=== PATIENT | female | born 1965 | race Caucasian/White ===

== ENCOUNTER 2016-08-25 22:32 | Emergency (ER) | payer SELFPAY ==
--- NOTE | 2016-08-25 23:30 | ERNOTE ---
ENT HPI Presenting Symptoms: other - cough, body aches, sore throat Time Seen by Provider: 08/25/16 23:20 Source: patient Exam Limitations: no limitations - Immun/Allergies/Home Medications Immunizations: IMMUNIZATION HX Immunizations Up to Date Yes History of Influenza Vaccine No Allergies/Adverse Reactions: Allergies Allergy/AdvReac Type Severity Reaction Status Date / Time azithromycin [From Zithromax] Allergy Severe Anaphylaxis Verified 08/25/16 22:46 ciprofloxacin [From Cipro] Allergy Severe Anaphylaxis Verified 08/25/16 22:46 ciprofloxacin HCl Allergy Severe Anaphylaxis Verified 08/25/16 22:46 [From Cipro] doxycycline Allergy Severe Anaphylaxis Verified 08/25/16 22:46 erythromycin base Allergy Severe Verified 08/25/16 22:46 [Erythromycin Base] meloxicam Allergy Severe Hives Verified 08/25/16 22:46 mirtazapine [From Remeron] Allergy Severe Verified 08/25/16 22:46 nabumetone [From Relafen] Allergy Severe Verified 08/25/16 22:46 naproxen sodium [From Aleve] Allergy Severe Anaphylaxis Verified 08/25/16 22:46 Penicillins Allergy Severe Anaphylaxis Verified 08/25/16 22:46 sulfamethoxazole Allergy Severe Anaphylaxis Verified 08/25/16 22:46 [From Bactrim] tramadol Allergy Severe Verified 08/25/16 22:46 trimethoprim [From Bactrim] Allergy Severe Anaphylaxis Verified 08/25/16 22:46 venom-honey bee Allergy Intermediate Swelling Verified 08/25/16 22:46 of Throat cefaclor [From Ceclor] Allergy Mild Hives Verified 08/25/16 22:46 cephalexin monohydrate Allergy Mild Hives Verified 08/25/16 22:46 [From Keflex] Cephalosporins Allergy Mild Hives Verified 08/25/16 22:46 ibuprofen Allergy Hives Verified 08/25/16 22:46 paprika Allergy Intermediate Uncoded 08/25/16 22:46 tomatoes Allergy Mild Uncoded 08/25/16 22:46 turkey AdvReac Mild Uncoded 08/25/16 22:46 Home Medications: HOME MEDICATIONS Cyanocobalamin (Vitamin B-12) [Vitamin B-12] 2,000 mcg PO DAILY 03/11/14 [Last Taken Unknown] Ergocalciferol (Vitamin D2) [Vitamin D2] 50,000 unit PO Q3D 03/11/14 [Last Taken Unknown] Estrogen,Con/M-Progest Acet [Prempro 0.3 mg-1.5 mg Tablet] 1 each PO 03/31/16 [ Last Taken Unknown] Ibuprofen 800 mg PO TID 08/25/16 [Last Taken Unknown] - History of Present Illness Narrative: Pt has had cough, and malaise for 2 days. unknown tempurature. Severity: Present: moderate ENT Location: Present: throat Review of Systems - Review of Systems Constitutional: Present: See HPI, weakness, fatigue, decreased activity level EYE: Present: no symptoms reported ENT: Present: See HPI Respiratory: Present: See HPI, cough Cardiology: Absent: chest pain, palpitations Gastrointestinal/Abdominal: Absent: nausea Genitourinary: Present: no symptoms reported Musculoskeletal: Present: muscle pain, muscle stiffness Skin: Absent: rash Neurological: Present: no symptoms reported, other Hematologic/Lymphatic: Present: no symptoms reported Psych: Present: no symptoms reported - Patient's Past Medical History Patient History - Medical: Obesity Patient History - Cardiac/Respiratory: No pertinent hx Patient History - Cancer: No Hx of Cancer Patient History - Surgical Procedures: T & A - Social History Living Situations: home Smoking Status: Never smoker Alcohol Use: none Drug Use: none - Immunizations Immunizations Up to Date: Yes History of Influenza Vaccine: No Physical Exam - Physical Exam General Appearance: Present: wd/wn, alert, mild distress Eye Exam: Normal inspection: bilateral Ears, Nose, Throat: Present: nasal congestion, pharyngeal erythema - lateral streaks Neck: Present: normal inspection, nontender, supple Respiratory: Present: no respiratory distress, normal breath sounds, no accessory muscle use, chest nontender, lungs clear Cardiovascular/Chest: Present: regular rate, rhythm, no murmur, normal peripheral pulses Extremity Exam: Present: normal inspection, normal range of motion, no edema Neurological Exam: Present: alert, oriented Skin Exam: Present: normal color, warm/dry Lymphatic Exam: Present: no adenopathy ED Progress - Results and Orders Patient's Lab Results:: I have reviewed the patient's lab results. Results and Orders: Laboratory Tests 08/25/16 08/25/16 23:34 23:34 Influenza Type A Ag Negative Influenza Type B Ag Negative Group A Strep Rapid Negative - Vital Signs Patient's Vital Signs:: I have reviewed the patient's vital signs. Vital Signs: Vital Signs 08/25/16 08/25/16 22:33 22:43 Temperature 35.5 C L 36.1 C L Pulse Rate 69 Respiratory 18 Rate Blood Pressure 138/78 131/93 O2 Sat by Pulse 98 Oximetry - Progress/Reassessment Chief Complaint: Sore Throat Departure Clinical Impression: Upper respiratory infection Qualifiers: URI type: unspecified viral URI Qualified Code(s): J06.9 - Acute upper respiratory infection, unspecified - Departure Disposition: Home self-care Condition: Good Instructions: Upper Respiratory Infection, Adult, [id number] Referrals: Maurice Pond MD [Primary Care Provider] -
--- OUTSIDE RECORDS SUMMARY | 2016-08-25 23:37 | XMS REPORT | Continuity of Care Document ---
:1965 Author Organization [facility] ([facility]) Address [address] [place] [address] Phone [phone] Care Team Providers Name Role Phone Maurice Pond Primary Care Provider [phone] Source Comments This disclosure is being made pursuant to the Care Everywhere program, applicable federal and state laws, and may not contain all informaitonavailable regarding this patient.[facility] ([facility]) Active Allergies and Adverse Reactions Allergen Noted Date Severity Reactions Comments Azithromycin 11/24/2010 Urticaria (Hives) Carisoprodol Urticaria (Hives) Cefaclor Urticaria (Hives) Cephalosporins 03/15/2012 Rash Ciprofloxacin 11/24/2010 Bronchospasm,Rash Breathing difficulties Clindamycin 12/16/2013 Angioedema Doxycycline Hyclate 03/15/2012 Rash Erythromycin 03/15/2012 Rash Ibuprofen 03/15/2012 Urticaria (Hives) Medroxyprogesterone 10/20/2008 Pruritus,Rash Meloxicam 03/15/2012 Respiratory Distress,Urticaria (Hives) Mirtazapine 03/15/2012 Rash Naproxen 11/24/2010 OTHER hematuria Oxycodone-Acetaminophen 08/09/2015 Pruritus,Rash Penicillins 08/04/2012 OTHER Face swelled up. No breathing issues. Promethazine Angioedema SKIN BREAK-DOWN,-IV FORM Sulfamethoxazole Nausea & Vomiting,Rash Tramadol 03/15/2012 Rash Trimethoprim Nausea & Vomiting Current Medications Prescription Sig. Disp. Refills Start Date End Date Status cyanocobalamin (VITAMIN Take 2,000 mcg by Active B-12) 1,000 mcg tablet mouth daily. ergocalciferol (VITAMIN Take 50,000 Units Active D2) 50,000 unit capsule by mouth 2 times weekly. ibuprofen 200 mg tablet Take 600-800 mg by Active mouth every 8 hours as needed. CALCIUM CARBONATE/VITAMIN Active D3 (CALCIUM + D PO) estrogens, Take 1 tablet by Active conjugated-medroxyPROGESTE mouth daily. Jonathan (PREMPRO) 0.3-1.5 mg per tablet zinc sulfate 44 mg/mL Take 220 mg by Active solution mouth daily. Active Problems Problem Noted Date Acquired bilateral hammer toes 08/11/2015 Vitamin D deficiency 08/11/2015 Dental abscess 10/24/2011 Other disorder of menstruation and other abnormal bleeding from female 2008 genital tract Unspecified symptom associated with female genital organs 06/05/2008 Rheumatoid arthritis(714.0) 07/31/2005 Lumbago 04/06/2000 Social History Tobacco Use Types Packs/Day Years Used Date Never Smoker Smokeless Tobacco: Never Used Alcohol Use Drinks/Week oz/Week Comments No rare Last Filed Vital Signs Vital Sign Reading Time Taken Blood Pressure 128/71 02/12/2016 9:24 AM CDT Pulse 64 02/12/2016 9:24 AM CDT Temperature 35.1 C (95.2 F) 02/12/2016 9:24 AM CDT Respiratory Rate 11 12/09/2013 1:32 PM CDT Height 1.626 m (5' 4.02") 02/12/2016 9:24 AM CDT Weight 109.3 kg (240 lb 15.4 oz) 02/12/2016 9:24 AM CDT Body Mass Index 41.34 02/12/2016 9:24 AM CDT Oxygen Saturation 100% 12/20/2013 10:15 AM CDT Plan of Care Health Maintenance Due Date Last Done Comments Hepatitis B Vaccine (1 of 3 - Primary Series) 1965 Tdap Vaccine 07/02/1978 Lipid Disorder Screening 07/02/1985 MMR Vaccine 07/02/1985 Td Vaccine 07/02/1985 Cervical Cancer Screening 02/25/2005 02/25/2002 Mammogram 2007 02/25/2002 Influenza Vaccine: Seasonal (#1) 11/26/2015 Results from Last 3 Months Not on file
[2016-08-26 00:25] VITALS: BP 122/74
== END 2016-08-26 00:24 | disposition home or self-care (01) ==
LOC: ER 22:32
DX: J06.9 Acute upper respiratory infection, unspecified (principal)

== ENCOUNTER 2016-10-06 22:37 | Emergency (ER) | payer SELFPAY ==
[2016-10-06 22:58] LABS: Hematocrit 37.8 % (37.0-47.0); Hemoglobin 12.2 gm/dL (12.5-16.0); Mean Cell Volume 87.7 fl (78-100); Mean Corpuscular Hemoglobin 28.3 pg (27-31); Mean Corpuscular Hgb Conc 32.3 g/dl (32-36); Mean Platelet Volume 10.3 fl (6.0-9.5); Neutrophil # 4.5 K/mm3 (1.3-6.0); Neutrophil % 64.1 % (42-75.0); Platelet Count 282 K/mm3 (150-450); Red Blood Count 4.31 M/mm3 (4.2-5.4); Red Cell Distribution Width 13.1 % (11.5-14.0)
[2016-10-06 23:09] LABS: Prothrombin Time (Patient) 10.5 Seconds (9.4-11.4)
[2016-10-06] MEDS ORDERED: LIDOCAINE HCL 20 ML UDC PO ONE (23:09)
[2016-10-06] MEDS ORDERED: MAG HYDROX/ALUMINUM HYD/SIMETH 30 ML UDC PO ONE (23:09)
[2016-10-06 23:10] LABS: INR 1.01 INR (0.90-1.10); Partial Thrombolplastin Time 25.7 Seconds (24-32)
[2016-10-06] MEDS ORDERED: FAMOTIDINE 20 MG TABLET PO ONE (23:10)
[2016-10-06] MEDS ORDERED: HYDROmorphone HCL 1 MG/ML DISP.SYRIN IV ONE (23:10)
[2016-10-06] MEDS ORDERED: HYDROmorphone HCL 1 MG/ML DISP.SYRIN ONE (23:14)
[2016-10-06] MEDS ORDERED: FAMOTIDINE 20 MG TABLET ONE (23:14)
[2016-10-06 23:16] LABS: ALT 22 U/L (19-67); AST 19 U/L (0-48); Albumin * 3.3 gm/dl (3.4-5.0); Alkaline Phosphatase * 188 U/L (50-170); Anion Gap 12.4 mmol/L (6.8-13.8); Bilirubin, Total 0.2 mg/dL (0.0-1.1); Blood Urea Nitrogen 13 mg/dL (3-23); Ca. Corrected For Albumin 8.9 mg/dL (8.4-10.2); Calcium * 8.7 mg/dL (7.9-10.9); Carbon Dioxide 28.2 mmol/L (24-32.6); Chloride 104 mmol/L (97-106); Glucose * 108 mg/dL (70-110); Potassium 3.6 mmol/L (3.4-4.6); Sodium 141 mmol/L (132-142); Total Protein 7.3 gm/dL (6.2-8.2); Troponin I Less than 0.017 ng/ml (0.00-0.10)
--- NOTE | 2016-10-06 23:17 | ERNOTE ---
Chest Pain/Cardiac HPI Date of Service: 10/06/16 Chief Complaint: Chest Pain Time Seen by Provider: 10/06/16 23:08 Source: patient Exam Limitations: no limitations Immunizations: IMMUNIZATION HX Immunizations Up to Date No History of Influenza Vaccine No Hx Pneumococcal Vaccination No Allergies/Adverse Reactions: Allergies azithromycin [From Zithromax] Allergy (Severe, Verified 10/06/16 22:54) Anaphylaxis ciprofloxacin [From Cipro] Allergy (Severe, Verified 10/06/16 22:54) Anaphylaxis ciprofloxacin HCl [From Cipro] Allergy (Severe, Verified 10/06/16 22:54) Anaphylaxis doxycycline Allergy (Severe, Verified 10/06/16 22:54) Anaphylaxis erythromycin base [Erythromycin Base] Allergy (Severe, Verified 10/06/16 22:54) meloxicam Allergy (Severe, Verified 10/06/16 22:54) Hives mirtazapine [From Remeron] Allergy (Severe, Verified 10/06/16 22:54) nabumetone [From Relafen] Allergy (Severe, Verified 10/06/16 22:54) naproxen sodium [From Aleve] Allergy (Severe, Verified 10/06/16 22:54) Anaphylaxis Penicillins Allergy (Severe, Verified 10/06/16 22:54) Anaphylaxis sulfamethoxazole [From Bactrim] Allergy (Severe, Verified 10/06/16 22:54) Anaphylaxis tramadol Allergy (Severe, Verified 10/06/16 22:54) trimethoprim [From Bactrim] Allergy (Severe, Verified 10/06/16 22:54) Anaphylaxis venom-honey bee Allergy (Intermediate, Verified 10/06/16 22:54) Swelling of Throat cefaclor [From Ceclor] Allergy (Mild, Verified 10/06/16 22:54) Hives cephalexin monohydrate [From Keflex] Allergy (Mild, Verified 10/06/16 22:54) Hives Cephalosporins Allergy (Mild, Verified 10/06/16 22:54) Hives honey Allergy (Verified 10/06/16 22:54) Swelling of Face ibuprofen Allergy (Verified 10/06/16 22:54) Hives paprika Allergy (Intermediate, Uncoded 10/06/16 22:54) tongue, lips and face swelling tomatoes Allergy (Mild, Uncoded 10/06/16 22:54) mouth sores turkey Adverse Reaction (Mild, Uncoded 06/12/17 22:54) vomiting Home Medications: HOME MEDICATIONS Cyanocobalamin (Vitamin B-12) [Vitamin B-12] 2,000 mcg PO DAILY 03/11/14 [Last Taken Unknown] Ergocalciferol (Vitamin D2) [Vitamin D2] 5,000 unit PO DAILY 03/11/14 [Last Taken Unknown] Estrogen,Con/M-Progest Acet [Prempro 0.3 mg-1.5 mg Tablet] 1 each PO 2XW [Last Taken Unknown] Famotidine [Pepcid] 20 mg PO DAILY #30 tablet 10/06/16 [Last Taken Unknown] Potassium 99 mg PO DAILY 10/06/16 [Last Taken Unknown] Sucralfate [Carafate] 1 gm PO QID #120 tab 10/06/16 [Last Taken Unknown] Narrative: 51 yo JUANITO comes to ED with 3 weeks for intermittent chest pain. Last two days it has been more consistent and more intense. She describes lower parasternal pain which radiates laterally to scapular area and up to lower cervicoclavicular region. It has been associated with intense pyrosis which she has not had in the past. She denies any fever, chills, diaphoresis, SOB. Pain is now a 2/10 but was 10/10 earlier. She has been under alot of stress for the past weeks. Review of Systems - Review of Systems Constitutional: Present: fatigue ENT: Present: no symptoms reported Respiratory: Present: no symptoms reported Cardiology: Present: no symptoms reported Musculoskeletal: Present: no symptoms reported Neurological: Present: no symptoms reported - Patient's Past Medical History Patient History - Medical: Obesity Patient History - Cardiac/Respiratory: Arrhythmias Patient History - Cancer: No Hx of Cancer Patient History - Surgical Procedures: Gastric Bypass, T & A Patient History - Other: None LMP (females 10-50): Menopausal - Social History Living Situations: home Psych History: No pertinent hx Smoking Status: Never smoker Alcohol Use: rarely Drug Use: none - Immunizations Immunizations Up to Date: No Hx Pneumococcal Vaccination: No History of Influenza Vaccine: No Physical Exam - Physical Exam General Appearance: Present: wd/wn, alert, no apparent distress, obese Eye Exam: Normal inspection: bilateral Ears, Nose, Throat: Present: normal ENT inspection Neck: Present: normal inspection Respiratory: Present: no respiratory distress Cardiovascular/Chest: Present: regular rate, rhythm, gallop/S4, systolic murmur Gastrointestinal/Abdominal: Present: nontender, soft Extremity Exam: Present: normal inspection, non-tender, no edema Skin Exam: Present: normal color, warm/dry ED Progress - Results and Orders Patient's Lab Results:: I have reviewed the patient's lab results. - Vital Signs Patient's Vital Signs:: I have reviewed the patient's vital signs. Vital Signs: Vital Signs 10/06/16 10/06/16 22:42 22:51 Temperature 36.3 C L Pulse Rate 65 63 Respiratory 17 Rate Blood Pressure 147/80 O2 Sat by Pulse 98 Oximetry - EKG EKG: NSR, no ST T wave changes, other - No acute change from 12/16/2013 - X-Ray X-Ray #1 X-Ray: chest - No acute changes - Progress/Reassessment Chief Complaint: Chest Pain Progress Note-Subjective: 10/06/16 23:43 Feels much improved. No pain. Plan - Plan Plan: Elevation HOB 10-12 inches Do not eat less than 3 hours before reclining. Take carafate and pepcid as directed Follow up with PCP Departure - Departure Clinical Impression: Atypical chest pain, Esophageal spasm, GERD (gastroesophageal reflux disease) Disposition: Home self-care Condition: Fair Instructions: Indigestion, [id number] Additional Instructions: Do not eat less than 3 hours before reclining Elevate HOB 10-12 inches Take pepcid and carafate as directed Follow up with PCP Referrals: Maurice Pond MD [Primary Care Provider] - Prescriptions: Famotidine [Pepcid] 20 mg PO DAILY #30 tablet Sucralfate [Carafate] 1 gm PO QID #120 tab
[2016-10-06] MEDS ORDERED: SUCRALFATE 1 G/10 ML UDC PO ONE (23:18)
--- OUTSIDE RECORDS SUMMARY | 2016-10-06 23:21 | XMS REPORT | Continuity of Care Document ---
:1965 Author Organization [facility] ([facility]) Address [address] [place] [address] Phone [phone] Care Team Providers Name Role Phone Maurice Pond Primary Care Provider [phone] Source Comments This disclosure is being made pursuant to the Care Everywhere program, applicable federal and state laws, and may not contain all informaitonavailable regarding this patient.[facility] ([facility]) Active Allergies and Adverse Reactions Allergen Noted [...]
[2016-10-06 23:36] VITALS: BP 137/78
== END 2016-10-06 23:58 | disposition home or self-care (01) ==
LOC: ER 22:37
DX: R07.89 Other chest pain (principal); K22.4 Dyskinesia of esophagus; K21.9 Gastro-esophageal reflux disease without esophagitis

== ENCOUNTER 2016-10-26 21:07 | Emergency (ER) | payer SELFPAY ==
[2016-10-26 21:26] VITALS: BP 117/83
[2016-10-26] MEDS ORDERED: TETANUS AND DIPHTHERIA TOXOID 0.5 ML SYRG IM ONE (21:48)
[2016-10-26] MEDS ORDERED: DIPHTH,PERTUSS(ACELL),TET VAC 0.5 ML VIAL IM ONE ×2 (21:52→22:15)
--- NOTE | 2016-10-26 21:52 | ERNOTE ---
Lower Extremity HPI - Narrative Date of Service: 10/26/16 - General Lower Extremities Pain: leg: right Time Seen by Provider: 10/26/16 21:42 Source: patient Exam Limitations: no limitations - Immun/Allergies/Home Medications Immunizations: IMMUNIZATION HX Immunizations Up to Date Yes History of Influenza Vaccine No Hx Pneumococcal Vaccination No Allergies/Adverse Reactions: Allergies Allergy/AdvReac Type Severity Reaction Status Date / Time azithromycin [From Zithromax] Allergy Severe Anaphylaxis Verified 10/06/16 22:54 ciprofloxacin [From Cipro] Allergy Severe Anaphylaxis Verified 10/06/16 22:54 ciprofloxacin HCl Allergy Severe Anaphylaxis Verified 10/06/16 22:54 [From Cipro] doxycycline Allergy Severe Anaphylaxis Verified 10/06/16 22:54 erythromycin base Allergy Severe Verified 10/06/16 22:54 [Erythromycin Base] meloxicam Allergy Severe Hives Verified 10/06/16 22:54 mirtazapine [From Remeron] Allergy Severe Verified 10/06/16 22:54 nabumetone [From Relafen] Allergy Severe Verified 10/06/16 22:54 naproxen sodium [From Aleve] Allergy Severe Anaphylaxis Verified 10/06/16 22:54 Penicillins Allergy Severe Anaphylaxis Verified 10/06/16 22:54 sulfamethoxazole Allergy Severe Anaphylaxis Verified 10/06/16 22:54 [From Bactrim] tramadol Allergy Severe Verified 10/06/16 22:54 trimethoprim [From Bactrim] Allergy Severe Anaphylaxis Verified 10/06/16 22:54 venom-honey bee Allergy Intermediate Swelling Verified 10/06/16 22:54 of Throat cefaclor [From Ceclor] Allergy Mild Hives Verified 10/06/16 22:54 cephalexin monohydrate Allergy Mild Hives Verified 10/06/16 22:54 [From Keflex] Cephalosporins Allergy Mild Hives Verified 10/06/16 22:54 honey Allergy Swelling Verified 10/06/16 22:54 of Face ibuprofen Allergy Hives Verified 10/06/16 22:54 paprika Allergy Intermediate Uncoded 10/06/16 22:54 tomatoes Allergy Mild Uncoded 10/06/16 22:54 turkey AdvReac Mild Uncoded 10/06/16 22:54 Home Medications: HOME MEDICATIONS Cyanocobalamin (Vitamin B-12) [Vitamin B-12] 2,000 mcg PO DAILY 11/15/14 [Last Taken Unknown] Ergocalciferol (Vitamin D2) [Vitamin D2] 5,000 unit PO DAILY 03/11/14 [Last Taken Unknown] Estrogen,Con/M-Progest Acet [Prempro 0.3 mg-1.5 mg Tablet] 1 each PO 2XW [Last Taken Unknown] - History of Present Illness Narrative: Patient comes in with 2 scratches on the medial aspect of her right leg. She was scratched by a roney wire fence which reports it pulled her into. She also sustained a contusion distally on the medial aspect of her leg. The patient is mostly concerned because she is not up-to-date on her tetanus shot and this was a very stephen roney wire fence. She has no other complaints no other injuries did not hit her head did not suffer any other problems. Review of Systems - Narrative Narrative: Except as above the remainder of the review of systems is negative - Review of Systems Skin: Present: See HPI All Other Systems: All systems neg except as marked - Patient's Past Medical History Patient History - Medical: GERD, Obesity Patient History - Cardiac/Respiratory: Arrhythmias Patient History - Cancer: No Hx of Cancer Patient History - Surgical Procedures: Gastric Bypass, T & A, Other Patient History - Other: None - Social History Living Situations: home Abuse History: No History of abuse Psych History: No pertinent hx Smoking Status: Former smoker Alcohol Use: rarely Drug Use: none - Immunizations Immunizations Up to Date: Yes Hx Pneumococcal Vaccination: No History of Influenza Vaccine: No Physical Exam - Physical Exam General Appearance: Present: wd/wn, alert, no apparent distress Ears, Nose, Throat: Present: normal ENT inspection Neck: Present: normal inspection Respiratory: Present: no respiratory distress, lungs clear Cardiovascular/Chest: Present: regular rate, rhythm Gastrointestinal/Abdominal: Present: normal bowel sounds, nontender Extremity Exam: Present: other - the patient has 2 superficial scratches to the medial aspect of the right leg heading from posteriorly to anterior. Ending around the inferior margin of the patella. Bleeding is controlled. These are quite superficial. Neurological Exam: Present: alert, oriented, normal mood/affect ED Progress - Vital Signs Patient's Vital Signs:: I have reviewed the patient's vital signs. Vital Signs: Vital Signs 10/26/16 21:15 Temperature 36.8 C Pulse Rate 71 Respiratory 18 Rate Blood Pressure 117/83 O2 Sat by Pulse 99 Oximetry - Progress/Reassessment Chief Complaint: Lower Extremity Pain/ Injury Departure Clinical Impression: Abrasion hip/leg - Departure Disposition: Home self-care Condition: Stable Additional Instructions: Keep a close eye on the areas where he got scratched. Certainly if he develop redness, fever, pus, any new worrisome symptoms she should return to the ER. Otherwise follow-up with her family doctor. Referrals: Maurice Pond MD [Primary Care Provider] -
== END 2016-10-26 22:06 | disposition home or self-care (01) ==
LOC: ER 21:07
DX: S80.811A Abrasion, right lower leg, initial encounter (principal); S70.211A Abrasion, right hip, initial encounter; W45.8XXA Other foreign body or object entering through skin, initial encounter; Y93.9 Activity, unspecified; Y92.89 Other specified places as the place of occurrence of the external cause; Z23 Encounter for immunization